=== PATIENT | male | born 1955 | race Caucasian/White ===

== ENCOUNTER 2020-01-20 11:13 | Emergency (ER) | payer OTHER ==
[~2020-01-20] VITALS: Ht 177.8 cm; Wt 100.7 kg
[2020-01-20 11:16] VITALS: Ht 177.8 cm; Wt 100.7 kg
[2020-01-20 12:18] LABS: BASOPHIL % 0.5 % (0-2); PLATELET COUNT 158 x10^3mcL (130-400); RED CELL DISTRIBUTION WIDTH 13.7 % (11.5-14.5)
[2020-01-20 12:30] LABS: CALCIUM 9.2 mg/dL (8.5-10.1); CHLORIDE SERUM 103 mmol/L (98-107); GFR1 > 60 mL/min; GLUCOSE SERUM 135 mg/dL (74-106); POTASSIUM SERUM 3.6 mmol/L (3.5-5.1); SODIUM SERUM 140 mmol/L (136-145)
[2020-01-20 12:34] LABS: ALBUMIN 4.4 g/dL (3.4-5.0); ALKALINE PHOSPHATASE 40 U/L (46-116); ALT/SGPT 34 U/L (16-63); AST/SGOT 17 U/L (15-37); BILIRUBIN TOTAL 1.1 mg/dL (0.20-1.00); TOTAL PROTEIN, SERUM 7.4 g/dL (6.4-8.2)
[2020-01-20 14:14] VITALS: BP 145/73
== END 2020-01-20 14:14 | disposition home or self-care (01) ==
LOC: ED 11:13
PROVIDERS: Emergency Medicine
DX: N21.1 Calculus in urethra (principal); I10 Essential (primary) hypertension; E66.01 Morbid (severe) obesity due to excess calories; Z88.5 Allergy status to narcotic agent
CPT/HCPCS: J1885; J3010; J7030